=== PATIENT | male | born 1935 | race Two or more races ===

== ENCOUNTER 2020-10-21 10:37 | Emergency (ER) | payer MEDICARE, OTHER ==
[~2020-10-21] VITALS: Ht 165.1 cm; Wt 74.8 kg
--- NOTE | 2020-10-21 11:01 | NUR ---
patients ricardo amaro #[id number]
[2020-10-21] MEDS ORDERED: Morphine Sulfate 4mg/ml Inj IVP ONE (11:15)
[2020-10-21] MEDS ORDERED: Morphine Sulfate 2mg/ml Inj IVP ONE (11:15)
--- NOTE | 2020-10-21 11:39 | Emergency Room Report ---
History of Present Illness General Chief Complaint: Abdominal Pain Source: Patient Present Illness HPI 85-year-old male with past medical history of hypertension, dyslipidemia, CAD status post CABG, CKD, anxiety, neuropathy, brought in by daughter for complaint of left lower quadrant abdominal pain x2 weeks. Patient also endorses early satiety, bloating, nausea and bilateral testicular pain. He denies dysuria, hematuria, diarrhea, melena, hematochezia, chest pain, shortness of breath, dyspnea on exertion, cough, fever, hemoptysis, leg swelling, back pain, neck pain, rash, or any other issues. He states he has had similar symptoms in the past but they self resolved. His symptoms today have been constant and are causing him to lose sleep. He denies history of recent colonoscopy or endoscopy. He reports being compliant with all of his medications The patient's symptoms were gradual onset, severity was moderate, duration since 2 weeks. Quality: Bloating Past medical history: Hypertension, dyslipidemia, CAD, CKD, anxiety, neuropathy Past surgical history: CABG Smoking: Denies Alcohol use: Denies Drug use: Denies Review of systems: CONST: No fevers or chills, No night sweats PULMONARY: No productive cough, No shortness of breath CARDIAC: No chest pain, No palpitations GI: No vomiting, No diarrhea , No melena_or_BRBPR : No dysuria, No hematuria, No discharge NEURO: No new_focal_weakness_or_numbness, No confusion, No vision changes 14 point Review of Systems is otherwise negative except per HPI Physical Exam: GENERAL: Awake_alert_ nontoxic, no acute distress Spo2 98% on RA -normal EYES: Extraocular muscles are intact. Conjunctivae clear. Lids without swelling ENT: External nose and ear normal_in_appearance. Oropharynx clear. Head_atraumatic, Moist_oral_mucosa NECK: No JVD. No meningismus. No thyromegaly. Supple. Trachea midline RESP: Normal respiratory effort. Symmetric rise. No stridor. Clear_to_ausc ultation_No_rales_No_wheezes CARDIAC: Regular rate and regular rhytm. No_significant pedal edema. ABDOMEN: Soft. Minimally distended.No_rebound_or_guarding. Positive left lower quadrant tenderness to palpation. No peritonitis. No rebound or guarding. No CVA tenderness to palpation. Negative Restrepo sign. Negative Rovsing sign. : uncircumcised penis without rash, testicles descended without tenderness or swelling, testicles with normal lie. No discharge. No vesicular lesions. Chaperoned with nurse Cooper at bedside MSK: Normal muscle tone, without rigidity. Extremities without asymmetric deformity or swelling. SKIN: Warm and dry. No visible cyanosis or pallor. No petechiae NEUROLOGIC: Alert, oriented x3. Motor_and_sensation_grossly_intact. No truncal ataxia. Gait_normal Psych: Normal mood and affect, normal judgment and insight - COORDINATION OF CARE Case was discussed with: Patient , Patient's Family Any labs and imaging that were ordered were interpreted as part of the medical decision making: Medical Decision Making/Plan: Differential diagnosis includes constipation, diverticulitis, diverticulosis, ileus, small bowel obstruction, nephrolithiasis, pyelonephritis, cholecystitis, choledocholithiasis, hepatitis, volvulus, AAA, pancreatitis, atypical appendicitis, gastroparesis, gastritis, peptic ulcer disease, among others. Patient is well appearing with stable vital signs. Abdominal exam is notable for mild left lower quadrant tenderness to palpation without rebound or guarding. No CVA tenderness to palpation. examination is grossly unremarkable. Labs show mild PIERCE Cr 1.7. No uremia. Likely CKD, consistent with patient's history and chronic comorbidities. CT incidentally showed BPH, but is otherwise negative for hydronephrosis or obstructive uropathy. No evidence of UTI. Abdominal pain/distention likely 2/2 large fecal burden. There is diverticulosis without diverticulitis. Scrotal ultrasound shows bilateral hydroceles. No torsion. EKG shows sinus rhythm. No acute ischemia. No ectopy. The patients symptoms are not consistent with ACS (acute coronary syndrome), symptoms are not exertional, EKG without obvious ischemic change. ED intervention included morphine, zofran, and IVF bolus with full relief of symptoms. The patient denies any bloody stool and has no pain out of proportion to exam, and no significant risk factors for mesenteric ischemia such as atrial fibrillation or severe PAD/PVD (peripheral arterial / vascular disease), thus definitive workup to rule out mesenteric ischemia was not pursued. Patient is afebrile, without any significant tenderness in the RUQ, and a negative Garfield sign. The patients presentation does not appear to be consistent with acute cholecystitis and thus definitive imaging to rule it out was not pursued. The patient has normal dorsalis pedis pulses, no radiation of pain to the back, and no pulsatile mass felt on exam. Doubt AAA or dissection Will DC with flomax for BPH and stool softener for constipation. Recommend high fiber diet and increased hydration. I spoke with daughter Yadira about marginally abnormal renal function , and re commend repeat lab work done this week with PMD. She verbalizes her understanding and states she will take her dad in 1-2 days to PMD for repeat evaluation. Allergies: Coded Allergies: No Known Allergies (Unverified , 10/21/20) COVID-19 Screening Contact w/high risk pt: No Experienced COVID-19 symptoms?: No COVID-19 Testing performed METAL TESTER: No Nursing Documentation-PMH Past Medical History: No Stated History Physical Exam Vital Signs Date Time Temp Pulse Resp B/P (MAP) Pulse Ox O2 Delivery O2 Flow Rate FiO2 10/21/20 10:46 98.2 66 18 148/73 (98) 98 Room Air Sp02 EP Interpretation: reviewed, normal Medical Decision Making Diagnostic Impression: Primary Impression: Abdominal pain Additional Impressions: Constipation CKD (chronic kidney disease) BPH (benign prostatic hyperplasia) Epididymal cyst Hydrocele EKG Diagnostic Results Troponin ordered: Yes When was troponin ordered?: Oct 21, 2020 FRITZ Sanchez 12-lead EKG (interpreted by me) Time: 1141 Indication: Rhythm analysis Tracing visualized and Interpreted by me. Rhythm: Sinus bradycardia Rate: 54 bpm QTc: 403 sinus bradycardia. Morphology: No_significant_ST_elevations_or_depressions, No STEMI Impression: Sinus bradycardia Rhythm Strip Diag. Results Rhythm Strip Time: 11:39 EP Interpretation: yes Rate: 66 Rhythm: NSR, no PVC's, no ectopy CT/MRI/US Diagnostic Results CT/MRI/US Diagnostic Results : Impression CT Abdomen and Pelvis Without Intravenous Contrast FINDINGS: Lung bases: Unremarkable. No mass. No consolidation. ABDOMEN: Liver: Unremarkable. Gallbladder and bile ducts: Unremarkable. No calcified stones. No ductal dilation. Pancreas: Mild atrophy of the pancreas. No ductal dilation. Spleen: Unremarkable. No splenomegaly. Adrenals: Unremarkable. No mass. Kidneys and ureters: Nonspecific mild bilateral perinephric fat stranding. Liver renal cyst. No hydronephrosis or stone. Stomach and bowel: Evaluation of the stomach is limited by underdistention. Mild diverticulosis without evidence of diverticulitis. Moderate amount of stool throughout the colon. No bowel obstruction. PELVIS: Appendix: Normal appendix. Bladder: Prominence of the bladder wall is nonspecific. Please correlate with urinalysis to evaluate for cystitis. No stones. Reproductive: Mild prostatomegaly. ABDOMEN and PELVIS: Intraperitoneal space: Unremarkable. No free air. No significant fluid collection. Bones/joints: Degenerative changes of the spine. No acute fracture. No dislocation. Soft tissues: Unremarkable. Vasculature: Phleboliths in the pelvis. Atherosclerotic changes of the vasculature. No aortic aneurysm. Lymph nodes: Unremarkable. No enlarged lymph nodes. Other findings: Lumbosacral transitional anatomy. IMPRESSION: 1. Mild prostatomegaly. 2. Prominence of the bladder wall is nonspecific. Please correlate with urinalysis to evaluate for cystitis. US Scrotum FINDINGS: Right testicle: Right testicle measures 3.3 x 4.3 x 2.3 cm. Microcalcifications noted. No torsion. Left testicle: Left testicle measures 4.7 x 2.1 x 3.3 cm. Microcalcifications noted. No torsion. Epididymides: Right epididymal cysts, measuring up to 1.4 cm. Left epididymal cyst measuring up to 6 mm. Scrotum: Right greater than left muqml-tk-saoisfuk hydroceles. IMPRESSION: 1. Right greater than left [id number]-lm-iekcsuqc hydroceles. 2. Testicular microcalcifications. No evidence of torsion. 3. Testicular microcalcifications. Dictated By: Shaunna Couch MD Dictated By: Shaunna Couch MD Reevaluation Time: 14:00 Last Vital Signs Date Time Temp Pulse Resp B/P (MAP) Pulse Ox O2 Delivery O2 Flow Rate FiO2 10/21/20 10:46 98.2 66 18 148/73 (98) 98 Room Air Status: improved Disposition: HOME, SELF-CARE Admit Decision Time: 14:00 Condition: Stable Scripts Tamsulosin HCl (Flomax) 0.4 Mg Cap.er.24h 0.4 MG ORAL DAILY for BPH for 30 Days, #30 CAP Prov: Pau Frey D.OArminda 10/21/20 Acetaminophen* (TYLENOL EXTRA STRENGTH*) 500 Mg Tablet 500 MG ORAL Q8H PRN for Prn Headache/Temp > 101, #30 TAB 0 Refills Prov: Pau Frey D.O. 10/21/20 Ondansetron Odt* (ZOFRAN ODT*) 4 Mg Tab.rapdis 4 MG BC EVERY 6 HOURS PRN for Nausea & Vomiting, #10 TAB 0 Refills Prov: Pau Frey D.O. 10/21/20 Simethicone (Simethicone) 80 Mg Tab.chew 80 MG PO DAILY for 20 Days, #20 TAB Prov: Pau Frey D.O. 10/21/20 Docusate Sodium* (COLACE*) 100 Mg Capsule 100 MG ORAL THREE TIMES A DAY for 10 Days, #30 CAP Prov: Pau Frey D.O. 10/21/20 Referrals: NON PHYSICIAN (PCP) Patient Instructions: Abdominal Pain, Adult, Benign Prostatic Hyperplasia, Chronic Kidney Disease, [id number], Constipation, Adult, [id number]-[id number]-Iwrf, Hydroc albina, Adult Additional Instructions: Instructions for patient/farmworker livestock: Follow up with your physician in 1-2 days for repeat abdominal exam and follow up for your chronic kidney disease. Wear good scrotal support. Follow up with urology within a few weeks. Eat high fiber diet. Follow-up with your doctor sooner if your condition requires a more timely cl inical reevaluation. Return to the emergency department immediately if you feel that your condition is worsening or if you have any new or concerning symptoms. Review your discharge instructions and take any prescriptions given as instructed. [facility] PROVIDES FREE OR LOW-COST HEALTH SERVICES TO PEOPLE WHO CAN SHOW PROOF THAT THEY LIVE IN [facility]. TO FIND MORE CLINICS PARTNERED WITH THE [facility] TO PROVIDE SERVICE, PLEASE CALL . Pau Frey D.O. Oct 21, 2020 11:39
[2020-10-21 11:48] LABS: CALCIUM 8.5 MG/DL (8.5-10.1); CREATININE 1.7 MG/DL (0.55-1.30); POTASSIUM 4.3 MMOL/L (3.5-5.1)
[2020-10-21 11:52] LABS: ALBUMIN 3.9 G/DL (3.4-5.0); ALBUMIN/GLOBULIN RATIO 1.2 (1.0-2.7); BILIRUBIN,TOTAL 0.5 MG/DL (0.2-1.0)
[2020-10-21 12:00] LABS: BASOPHILS % (AUTO) 0.8 % (0.0-2.0); EOSINOPHILS % (AUTO) 2.5 % (0.0-3.0); LYMPHOCYTES % (AUTO) 25.8 % (20.0-45.0); MEAN CORPUSCULAR VOLUME 88 FL (80-99); MONOCYTES % (AUTO) 15.3 % (1.0-10.0); NEUTROPHILS % (AUTO) 55.7 % (45.0-75.0); PLATELET COUNT 167 K/UL (150-450); RED BLOOD COUNT 4.33 M/UL (4.70-6.10); RED CELL DISTRIBUTION WIDTH 13.6 % (11.6-14.8); WHITE BLOOD COUNT 4.8 K/UL (4.8-10.8)
[2020-10-21 12:00] LABS: APPEARANCE,URINE CLEAR; BILIRUBIN, URINE NEGATIVE (NEGATIVE); COLOR,URINE PALE YELLOW; GLUCOSE, URINE (UA) NEGATIVE (NEGATIVE); KETONES,URINE NEGATIVE (NEGATIVE); LEUKOCYTE ESTERASE ,URINE NEGATIVE (NEGATIVE); NITRITE,URINE NEGATIVE (NEGATIVE); PH,URINE 8 (4.5-8.0); PROTEIN,URINE NEGATIVE (NEGATIVE); UROBILINOGEN,URINE NORMAL MG/DL (0.0-1.0)
--- NOTE | 2020-10-21 13:07 | Diagnostic Imaging Report ---
EXAM: CT Abdomen and Pelvis Without Intravenous Contrast CLINICAL HISTORY: PAIN TECHNIQUE: Axial computed tomography images of the abdomen and pelvis without intravenous contrast. CTDI is 5.3 mGy and DLP is 260.3 mGy-cm. One or more of the following dose reduction techniques were used: automated exposure control, adjustment of the mA and/or kV according to patient size, use of iterative reconstruction technique. COMPARISON: None FINDINGS: Lung bases: Unremarkable. No mass. No consolidation. ABDOMEN: Liver: Unremarkable. Gallbladder and bile ducts: Unremarkable. No calcified stones. No ductal dilation. Pancreas: Mild atrophy of the pancreas. No ductal dilation. Spleen: Unremarkable. No splenomegaly. Adrenals: Unremarkable. No mass. Kidneys and ureters: Nonspecific mild bilateral perinephric fat stranding. Liver renal cyst. No hydronephrosis or stone. Stomach and bowel: Evaluation of the stomach is limited by underdistention. Mild diverticulosis without evidence of diverticulitis. Moderate amount of stool throughout the colon. No bowel obstruction. PELVIS: Appendix: Normal appendix. Bladder: Prominence of the bladder wall is nonspecific. Please correlate with urinalysis to evaluate for cystitis. No stones. Reproductive: Mild prostatomegaly. ABDOMEN and PELVIS: Intraperitoneal space: Unremarkable. No free air. No significant fluid collection. Bones/joints: Degenerative changes of the spine. No acute fracture. No dislocation. Soft tissues: Unremarkable. Vasculature: Phleboliths in the pelvis. Atherosclerotic changes of the vasculature. No aortic aneurysm. Lymph nodes: Unremarkable. No enlarged lymph nodes. Other findings: Lumbosacral transitional anatomy. IMPRESSION: 1. Mild prostatomegaly. 2. Prominence of the bladder wall is nonspecific. Please correlate with urinalysis to evaluate for cystitis.
--- NOTE | 2020-10-21 14:00 | Diagnostic Imaging Report ---
EXAM: US Scrotum CLINICAL HISTORY: PAIN TECHNIQUE: Real-time ultrasound of the scrotum with color Doppler and image documentation. COMPARISON: None FINDINGS: Right testicle: Right testicle measures 3.3 x 4.3 x 2.3 cm. Microcalcifications noted. No torsion. Left testicle: Left testicle measures 4.7 x 2.1 x 3.3 cm. Microcalcifications noted. No torsion. Epididymides: Right epididymal cysts, measuring up to 1.4 cm. Left epididymal cyst measuring up to 6 mm. Scrotum: Right greater than left gscnf-sw-ngrunvyh hydroceles. IMPRESSION: 1. Right greater than left icqba-bd-yuwauftu hydroceles. 2. Testicular microcalcifications. No evidence of torsion. 3. Testicular microcalcifications.
[2020-10-21] MEDS ORDERED: SIMETHICONE80 M1 PO (14:18)
[2020-10-21] MEDS ORDERED: COLACE100 MG ORAL (14:18)
[2020-10-21] MEDS ORDERED: TYLENOL EXTRA500 MG ORAL (14:18)
[2020-10-21] MEDS ORDERED: ONDANSETRON ODT4 MG BC (14:18)
[2020-10-21] MEDS ORDERED: FLOMAX0.4 MG ORAL (14:19)
[2020-10-21 16:10] VITALS: BP 148/73
[2020-10-21 16:13] VITALS: BP 130/80
== END 2020-10-21 16:16 | disposition home or self-care (01) ==
LOC: EMR 11:12
DX: R10.32 Left lower quadrant pain (principal); K59.00 Constipation, unspecified; N40.0 Benign prostatic hyperplasia without lower urinary tract symptoms; N50.3 Cyst of epididymis; N43.3 Hydrocele, unspecified; Z95.1 Presence of aortocoronary bypass graft; E78.5 Hyperlipidemia, unspecified; I25.10 Atherosclerotic heart disease of native coronary artery without angina pectoris; G62.9 Polyneuropathy, unspecified; F41.9 Anxiety disorder, unspecified; N50.812 Left testicular pain; N50.811 Right testicular pain; I12.9 Hypertensive chronic kidney disease with stage 1 through stage 4 chronic kidney disease, or unspecified chronic kidney disease; N18.9 Chronic kidney disease, unspecified; R00.1 Bradycardia, unspecified; K57.90 Diverticulosis of intestine, part unspecified, without perforation or abscess without bleeding
CPT/HCPCS: 36415; 74176; 76870; 80053; 81003; 83690; 84484; 85025; 85610; 85730; 93005; 96374; 96375; 99284; J2270; J2405; J7040